=== PATIENT | female | born 2000 | race Caucasian/White ===

== ENCOUNTER 2020-10-18 12:05 | Outpatient (CLI) | payer SELFPAY ==
[2020-10-18 12:16] VITALS: TEMP 37.1; O2SAT 98
[2020-10-18 12:17] VITALS: BP 133/84; PULSE 106
[2020-10-18 12:21] VITALS: BMI 30.2
[2020-10-18 13:04] LABS: ROM Internal Control Test YES-OK TO RESULT pt. (Internal QC); ROM Patient Test Negative (Negative)
--- NOTE | 2020-10-19 07:00 | OB.TRI.NOTE ---
History of Present Illness Date of Service: 10/18/20 Was patient seen by the physician?: No Reason For Visit: RULE OUT RUPTURED MEMBRANES Date of Service: 10/18/20 Final FATUMA: 10/23/20 Gestational age: 39 Weeks and 2 Days Allergies amoxicillin Allergy (Verified 10/18/20 12:21) Rash Laboratory Studies: Laboratory Tests 10/18/20 Range/Units 12:40 Vag Amniotic Fld Detect Negative (Negative) Physical Exam Vitals: Vital Signs Temp Pulse BP Pulse Ox 98.8 F 106 H 133/84 H 98 10/18/20 12:16 10/18/20 12:17 10/18/20 12:17 10/18/20 12:16 NST - FHR Rate Baby A Baseline: 135 Variability:: Moderate Accelerations:: 15 x 15 Decelerations:: Variable - x1 FHR Category:: Category I - for > 20 min before discharge Uterine Activity:: irreg ctxs Impression/Plan 20 YOF G1 w false labor reactive NST no evidence of SROM f/u as scheduled or as needed
== END 2020-10-18 13:40 | disposition home or self-care (01) ==
LOC: WPOUT 12:07 → OBT 12:09
PROVIDERS: Visit Provider Obstetrics & Gynecology
DX: O47.1 False labor at or after 37 completed weeks of gestation (principal); Z3A.39 39 weeks gestation of pregnancy; Z88.0 Allergy status to penicillin
CPT/HCPCS: 59025; 59050; 84112; 99218; G0378

== ENCOUNTER 2020-10-20 01:05 | Inpatient (IN) | payer SELFPAY ==
[2020-10-20] VITALS (75 sets, daily range): BP systolic 92–151; BP diastolic 50–96; PULSE 67–116; RESP 16–20; TEMP 36.3–37.8; O2SAT 94–100; BMI 30.2
[2020-10-20 01:02] LABS: ROM Internal Control Test YES-OK TO RESULT pt. (Internal QC); ROM Patient Test POSITIVE (Negative)
[2020-10-20] MEDS: Lactated Ringers 500 ML 999 ML IV ×2 (01:40→04:31)
[2020-10-20 01:55] LABS: Hematocrit 38.5 % (37-47); Lymphocyte % 5.6 % (19-41); Mean Corp Hgb Conc 33.8 g/dL (32-36); Mean Corpuscular Volume 91.7 fL (81-99); Mean Platelet Vol. 10.9 fl (6.2-12.0); Monocyte% 5.8 % (0-10); Neutrophil % 87.8 % (47-70); Platelet Count 194 K/mm3 (150-450); RBC Distribution Width CV 13.1 % (11.6-14.6); White Blood Count 15.4 K/mm3 (4.4-11.0)
[2020-10-20 01:56] LABS: Absolute Lymphocyte Count 0.87 X10^3/uL (0.83-4.51); Absolute Neutrophil Count 13.5 X10^3/uL (2.0-7.7); Basophil# 0.03 X10^3/uL; Basophil% 0.2 % (0-1); Eosinophil# 0.02 X10^3/uL; Eosinophils% 0.1 % (0-5); Lymphocyte # 0.87 X10^3/ul (4.0); Monocyte# 0.89 X10^3/uL; NRBC Flagged by Analyzer 0 % (0-5); Neutrophil # 13.52 X10^3/uL (2.7-7.7)
[2020-10-20] MEDS: Lactated Ringers 1,000 ML 50 ML IV (02:20)
[2020-10-20] MEDS: fentaNYL-bupivacaine (epidural) 100 ML BAG EPIDURAL (03:50)
[2020-10-20] MEDS: Oxytocin 30 units/NS 500 ml 30 UNITS/500 ML IV.SOLN IV (08:35)
[2020-10-20] MEDS: Oxytocin 30 units/NS 500 ml 30 UNITS/500 ML IV.SOLN 334 UNITS IV (08:50)
--- NOTE | 2020-10-20 09:12 | PCM.HP.OB ---
History Date of Admission: 10/19/20 Final FATUMA: 10/23/20 Final FATUMA Source: LMP Gestational age: 39 Weeks and 4 Days History of this : This is a 20 year-old, G 1P0, at 39 weeks gestational age c/o ctx- SROM in hospital in labor Allergies amoxicillin Allergy (Verified 10/18/20 12:21) Rash Home Medications: Home Medications Vits [Prenatabs FA] 1 tab PO DAILY 10/18/20 Smoking Status: Never smoker Alcohol: None Number of Fetus(es): 1 History Past Pregnancies: Past Pregnancies Delivery Date Name GA/ Weeks Outcome Route Wt Infant Sex Labor Length Anesthesia Delivery Location Provider FOB Physical Exam Vitals: Vital Signs Temp Pulse BP Pulse Ox 98.6 F 101 H 124/62 H 99 10/20/20 07:18 10/20/20 08:58 10/20/20 08:58 10/20/20 08:28 General: Alert, Oriented x3 Abdomen: Soft, Gravid Neurological: Cranial nerves II-XII grossly intact Assessment/Plan This is a 20 year-old, , at 39.4 weeks gestational age in active labor SROM 1) Admit to L&D 2) monitor FHR/TOCO 3) anticipate 4) epidural for pain mgmt upon my arrival and taking over care on 10/20/20 approximately 8am the patient was found to be 10/100/+2 station
--- NOTE | 2020-10-20 09:15 | PCM.OPRPT ---
Vaginal Delivery Maternal Presentation: Active Labor, Spontaneous Rupture of Membranes Amniotic Membrane Rupture Type: Spontaneous Rupture of Membrane time: 0030 Amniotic Fluid Description: Clear Final FATUMA: 10/23/20 Final FATUMA Source: LMP Gestational age: 39 Weeks and 4 Days Date of Procedure: 10/20/20 - 0850 Pre-Operative Diagnosis: term gestation, active labor Post-Operative Diagnosis: same, live male infant Surgery/ Procedure Performed: Spontaneous Vaginal Delivery Type of Anesthesia: Epidural Description of Procedure: of live male infant born without complication at 0850 on 10/20/20. good maternal pushing efforts delivered head followed by gentle downward traction to delivery shoulders followed by body. was placed on mother for immediate skin to skin and delayed cord clamping x 3 min per patien request. cord was then clamped and cut. umbilical cord avulsed from placenta with gentle traction- placenta was then delivered manually without complication. Pt tolerated well. 2nd degree perineal laceration repaired with 2-0 vicryl and 3-0 rapide. good hemostasis. Presentation: Vertex Placental Delivery Description: Manual Removal Placenta Disposition: [facility] Cord Vessel Description: 3 Vessels Cord Entanglement: None Estimated Blood Loss: 300 Infant A gender: Male (1 minute): 9 (5 minute): 9 Episiotomy Description: None Laceration: Perineal Extension/lac - repaired with 2-0 vicryl and 3-0 rapide, 2nd degree Medications given after delivery: IV Pitocin Complications: - - no implants placed
[2020-10-20] MEDS: Ibuprofen 600 MG Tablet PO ×2 (13:44→20:10)
[2020-10-20] MEDS: Senna/Docusate Sodium 1 Tablet PO (13:44)
[2020-10-21 04:02] VITALS: BP 107/59; PULSE 69; RESP 16; TEMP 36.4; TEMP 36.6
--- NOTE | 2020-10-21 06:11 | NURSING ---
Reviewed and agreed with Alessandro AMIN charting.
[2020-10-21 08:05] VITALS: BP 121/77; PULSE 71
[2020-10-21 08:39] VITALS: BP 121/77; PULSE 72; RESP 16; TEMP 36.5; O2SAT 98
--- NOTE | 2020-10-21 08:40 | PCM.PN.OB ---
Subjective: Patient is doing well. Ambulating and voiding without difficulty. She denies headache, dizziness, chest pain, shortness of breath, leg pain. Rating regular diet without nausea or vomiting. Lochia normal. She desires to go home today. Breast-feeding without complaints. - Physical Exam Vitals/I&O's: Vital Signs Temp Pulse Resp BP Pulse Ox 97.7 F L 72 16 121/77 H 98 10/21/20 08:39 10/21/20 08:39 10/21/20 08:39 10/21/20 08:39 10/21/20 08:39 Oxygen Delivery Method Room Air Weight: 204 lb 12.8 oz Body Mass Index (BMI) 30.2 Intake and Output for Last 24 Hours 10/19/20 10/20/20 10/21/20 23:59 23:59 23:59 Intake Total 2369.67 / 2369.67 Output Total 2500 / 2500 Balance -130.33 / -130.33 General: Alert, No apparent distress HEENT: Atraumatic Abdomen: Non-Distended Extremities: No edema Skin: No rashes Neurological: Neuro grossly intact Psych/Mental Status: Normal Affect, Appropriate Microbiology Past 72 Hours 10/20/20 02:20 Mucosa - Nose SARS-CoV-2 Antigen (Rapid) - Final Current Medications Acetaminophen (Acetaminophen 500 Mg Tablet) 1,000 mg PO Q8H PRN PRN PRN Reason: Pain Score 1-3 Bisacodyl (Bisacodyl 10 Mg Suppository) 10 mg RECTAL UD PRN PRN Reason: If no BM Dibucaine (Dibucaine 30 Gm Tube) 1 applic TOPICAL TID PRN PRN; Protocol PRN Reason: Discomfort Hydrocortisone (Hydrocortisone 2.5% Crm) 1 applic TOPICAL TID PRN PRN; Protocol PRN Reason: Discomfort Ibuprofen (Ibuprofen 600 Mg Tablet) 600 mg PO Q6H PRN PRN PRN Reason: Pain Score 1-3 Last Admin: 10/20/20 20:10 Dose: 600 mg Documented by: Methylergonovine Maleate (Methylergonovine 0.2 Mg/Ml Ampul) 0.2 mg IM X1 PRN PRN Reason: Excess bleeding/uterine atony Ondansetron HCl (Ondansetron 4 Mg/2 Ml Vial) 4 mg IV Q4H PRN PRN PRN Reason: Nausea Senna/Docusate Sodium (Senna/Docusate Sodium 1 Tablet) 1 - 2 tablet PO DAILY PRN PRN PRN Reason: Constipation Last Admin: 10/20/20 13:44 Dose: 2 tablet Documented by: Simethicone (Simethicone 80 Mg Tablet) 80 mg PO HS PRN PRN Reason: Indigestion/Stomach pain Sodium Chloride (0.9% Saline Lock 10 Ml Syringe) 5 - 15 ml IV UD PRN PRN Reason: SALINE FLUSH Medical Necessity - Tobacco Use Smoking Status: Never smoker Assessment/Plan day 1 from a vaginal delivery. She desires to go home today. Meeting all milestones for discharge. Discharge instructions reviewed.
--- NOTE | 2020-10-21 08:41 | DCINST_ITS ---
Discharge Diet: No Restrictions Discharge Activity: May Shower, May Take a Tub Bath May resume sexual activity in: 6 weeks Weight Bearing Status: Weight bearing as tolerated Call your doctor if you observe: Fever of 101 or Higher, Inability to urinate, Inability to have a bowel movement, Using more than one pad per hour, Shortness of breath, Dizziness, Fainting spells, Swelling in the ankles, Chest pain, Increased palpitations (irregular heartbeat), Calf discomfort, Uncontrolled pain Cleanse incision/area with: Soap & Water Additional Instructions: If you experience any of the following, contact your healthcare provider. * Bleeding that soaks a pad every hour for 2 hours * Fever 100.4 or higher * Unrelieved incision or abdominal pain * Swelling, redness, discharge or bleeding from your incision or episiotomy site * Your incision begins to separate * Problems urinating (including inability to urinate or burning while urinating). * Visual changes * Severe headache * Flu-like symptoms * Pain or redness in one of both of your breasts * Pain, warmth, tenderness or swelling in your legs, especially the calf area * Frequent nausea and vomiting * Symptoms of depression or anxiety If you experience any of the following, call 911 or go to the nearest Emergency Room. * Chest pain * Problems breathing * Seizure activity * Partial or complete paralysis of a body part, slurred speech, weakness or drooping of the face, or a sudden inability to walk or hold your balance Allergies/Adverse Reactions: Allergies amoxicillin Allergy (Verified 10/18/20 12:21) Rash Medications to take at Discharge Vits [Prenatabs FA] 1 tab PO DAILY 10/18/20 When: 1-2 weeks for virtual . 6 weeks for visit. Primary Care Physician: Care Physician,No Primary [Primary Care Provider] - Test Results: Test results from this visit will be discussed in further detail at your follow- up appointment, if applicable.
[2020-10-21 14:00] VITALS: BP 120/79; PULSE 79; RESP 16; TEMP 36.3; TEMP 36.6; O2SAT 98
[2020-10-21 14:02] VITALS: O2SAT 96
[2020-10-21 14:03] VITALS: BP 120/79; PULSE 113
== END 2020-10-21 14:35 | disposition home or self-care (01) | DRG 807 ==
LOC: WPOUT 01:06 → WP 01:06
PROVIDERS: Advanced Practice Midwife; Admitting Provider Obstetrics & Gynecology; Visit Provider Obstetrics & Gynecology
DX: O70.1 Second degree perineal laceration during delivery (principal); Z37.0 Single live birth; Z3A.39 39 weeks gestation of pregnancy
CPT/HCPCS: 59025; 59050; 84112; 85025; 86850; 86900; 86901; 87426; 99218; J7120; G0378